=== PATIENT | male | born 1965 | race Caucasian/White ===

== ENCOUNTER 2019-12-16 12:12 | Outpatient (RCR) | payer OTHER, SELFPAY | END 2020-01-05 23:59 | disposition home or self-care (01) | LOC: SPT 12:12 | PROVIDERS: PCP Internal Medicine; Referring Provider Internal Medicine; Visit Provider Internal Medicine | DX: R42 Dizziness and giddiness (principal) | CPT/HCPCS: 97161 ==

== ENCOUNTER 2020-06-25 06:00 | Outpatient (RCR) | payer OTHER, SELFPAY | END 2020-07-06 23:59 | disposition home or self-care (01) | LOC: SPT 06:00 | PROVIDERS: PCP Internal Medicine; Referring Provider Specialist; Visit Provider Specialist | DX: R42 Dizziness and giddiness (principal) | CPT/HCPCS: 97112; 97162 ==

== ENCOUNTER 2020-07-07 06:00 | Outpatient (RCR) | payer OTHER, SELFPAY | END 2020-08-06 23:59 | disposition home or self-care (01) | LOC: SPT 06:00 | PROVIDERS: PCP Internal Medicine; Referring Provider Specialist; Visit Provider Specialist | DX: R42 Dizziness and giddiness (principal) | CPT/HCPCS: 97112 ==